=== PATIENT | female | born 1935 | race African-American/Black ===

== ENCOUNTER 2017-11-20 15:22 | Inpatient (IN) | payer MEDICARE, OTHER ==
[~2017-11-20] VITALS: Ht 134.6 cm; Wt 34.9 kg
[~2017-11-20 15:22] MED LIST: ACET325 PO; ALPH0.15 OP; AMLO5TAB96 PO; BENZ100 PO; CODEINE PO; FLON0.053; GUAIFENESIN PO; RANI150T PO; TRAV0.00; ZITH250T PO
[2017-11-20 15:24] VITALS: BP 160/78; PULSE 95; RESP 20; TEMP 99.1; O2SAT 93
--- NOTE | 2017-11-20 17:12 | RADRPT ---
EXAM DATE/TIME: 11/20/2017 16:40 [facility] COMPARISON: No previous studies available for comparison. INDICATIONS : Left hip pain, xray elsewhere showed non displaced subcapital fracture. RADIATION DOSE: 6.17 CTDIvol (mGy) MEDICAL HISTORY : Hypertension. Gastroesophageal reflux disease. Mute, Mental retardation. SURGICAL HISTORY : ENCOUNTER: Initial ACUITY: 1 day PAIN SCALE: 7/10 LOCATION: Left Hip TECHNIQUE: Volumetric scanning of the hip was performed. Using automated exposure control and adjustment of the mA and/or kV according to patient size, radiation dose was kept as low as reasonably achievable to o btain optimal diagnostic quality images. DICOM format image data is available electronically for rev iew and comparison. FINDINGS: Axial imaging with multiplanar reconstruction in the coronal and sagittal planes was performed. There is an impacted fracture of the subcapital region with sclerosis about the impacted trabecula. There is mild valgus angulation of the femoral neck. No displacement seen. The intertrochanteric region is intact. The cortex of the sub-articular femoral head is intact. The acetabulum is intact. No radiopaq ue foreign bodies.. CONCLUSION: Impacted subcapital fracture with valgus angulation. Walt Martin MD on November 20, 2017 at 17:06 Board Certified Radiologist. This report was verified electronically.
[2017-11-20] MEDS ORDERED: CENTCHW4 (17:56)
[2017-11-20] MEDS ORDERED: TIMO0.5S5 EACH EYE (17:56)
[2017-11-20] MEDS ORDERED: LATA0.002 EACH EYE (17:56)
[2017-11-20] MEDS ORDERED: TRAM50TA PO (17:56)
[2017-11-20] MEDS ORDERED: ZANT150T2 PO (17:56)
[2017-11-20] MEDS ORDERED: MAPA325T PO (17:56)
[2017-11-20] MEDS ORDERED: AMLO5 PO (17:56)
--- NOTE | 2017-11-20 17:58 | RADRPT ---
EXAM DATE/TIME: 11/20/2017 17:39 [facility] COMPARISON: No previous studies available for comparison. INDICATIONS : Chest pain. MEDICAL HISTORY : Unobtainable. SURGICAL HISTORY : Unobtainable. ENCOUNTER: Initial ACUITY: 1 day PAIN SCORE: Non-responsive. LOCATION: chest FINDINGS: There is a linear lucency along the lateral right hemithorax, likely skin fold. No significant focal pleural-parenchymal opacities. Cardiomediastinal contours are within normal limits. Degenerative louis ges are noted about the shoulders and in the thoracic spine. CONCLUSION: 1. Suspected skin fold along the lateral right hemithorax. Consider formal PA and lateral views of th e chest to exclude pneumothorax. Cameron Coronado MD on November 20, 2017 at 17:55 Board Certified Radiologist. This report was verified electronically.
[2017-11-20 18:28] LABS: AUTOMATED NEUTROPHIL # 9.7 TH/MM3 (1.8-7.7); BASOPHIL # 0.1 TH/MM3 (0-0.2); BASOPHIL % 0.6 % (0.0-2.0); EOSINOPHIL # 0.6 TH/MM3 (0-0.4); EOSINOPHIL % 4.4 % (0.0-4.0); HEMATOCRIT 37.4 % (35.0-46.0); HEMOGLOBIN 12.8 GM/DL (11.6-15.3); LYMPHOCYTE # 1.8 TH/MM3 (1.0-4.8); MEAN CELL VOLUME 88.3 FL (80.0-100.0); MEAN CORPUSCULAR HEMOGLOBIN 30.1 PG (27.0-34.0); MEAN CORPUSCULAR HGB CONC 34.1 % (32.0-36.0); MONO % 10.6 % (0.0-8.0); MONOCYTE # 1.4 TH/MM3 (0-0.9); NEUT % 71.4 % (16.0-70.0); PLATELET COUNT 188 TH/MM3 (150-450); RED BLOOD COUNT 4.23 MIL/MM3 (4.00-5.30); RED CELL DISTRIBUTION WIDTH 13.4 % (11.6-17.2); WHITE BLOOD COUNT 13.5 TH/MM3 (4.0-11.0)
--- NOTE | 2017-11-20 18:34 | PD ---
HPI Chief Complaint: Musculoskeletal Complaint Time Seen by Provider: 17:16 Travel History International Travel<30 days: No Contact w/Intl Traveler<30days: No Traveled to known affect area: No History of Present Illness HPI 81-year-old female that presents to the ED for evaluation of possible rapid to her left hip. Unclear as to how long this symptoms have been ongoing. Patient is mute and even with the women designer she seems to be not a good historian. From what I can get from the caregiver patient has been complaining of left hip pain and she's been limping on the left hip for a few days. Patient had an x- ray done outpatient that showed possible fracture in the told her to come here for a CAT scan more evaluation. Patient herself complains of pain everywhere. She does have a significant history of arthritis. Apparently patient follows with Dr. Church who gives patient pain medication with some relief. She complains of pain all over. Caregiver and patient herself denies any fall but again she is not a good historian. She does not appear to have any signs of trauma. Patient states that her pain is severe and she cannot give me a number because of her chronic mental status. Again history is limited because of patient's not being a good historian. PFSH Past Medical History Cardiovascular Problems: Yes Diminished Hearing: No GERD: Yes Genitourinary: Yes Hypertension: Yes Medical other: Yes (mute ) Tetanus Vaccination: > 5 Years Influenza Vaccination: No Past Surgical History Surgical History: No Previous Surgery Social History Alcohol Use: No Tobacco Use: No Substance Use: No Allergies-Medications (Allergen,Severity, Reaction): Coded Allergies: No Known Allergies (Verified Allergy, Unknown, 11/20/17) Reported Meds & Prescriptions Reported Meds & Active Scripts Active Reported Timoptic Opth Drops (Timolol Opth Drops) 0.5 % Soln 1 Drop EACH EYE BID Centrum (Multiple Vitamins W/ Minerals) 1 Chew 1 Tab DAILY Latanoprost Opth Drops (Latanoprost) 0.005% Drops 1 Drop EACH EYE HS Refrigerate until opened. Zantac (Ranitidine HCl) 150 Mg Tab 150 Mg PO BID Norvasc (Amlodipine Besylate) 5 Mg Tab 5 Mg PO DAILY Tramadol (Tramadol HCl) 50 Mg Tab 50 Mg PO BID PRN Mapap (Acetaminophen) 325 Mg Tab 650 Mg PO Q4-6H PRN Review of Systems ROS Limitations: Poor Historian Except as stated in HPI: all other systems reviewed are Neg Physical Exam Exam Limitations: Poor Historian Narrative GENERAL: SKIN: Warm and dry. HEAD: Atraumatic. Normocephalic. EYES: Pupils equal and round. No scleral icterus. No injection or drainage. ENT: No nasal bleeding or discharge. Mucous membranes pink and moist. Tongue is midline. No uvula deviation. NECK: Trachea midline. No JVD. CARDIOVASCULAR: Regular rate and rhythm. Full range of motion of the upper and lower rectum is bilaterally. RESPIRATORY: No accessory muscle use. Clear to auscultation. Breath sounds equal bilaterally. GASTROINTESTINAL: Abdomen soft, non-tender, nondistended. Hepatic and splenic margins not palpable. MUSCULOSKELETAL: Extremities without clubbing, cyanosis, or edema. No obvious deformities. Patient has limp to the left side. Pain with some movement of the left hip. No obvious bruising or deformity noted. 2+ pulses bilaterally. NEUROLOGICAL: Awake and alert. No obvious cranial nerve deficits. Motor grossly within normal limits. Five out of 5 muscle strength in the arms and legs. Normal speech. PSYCHIATRIC: Appropriate mood and affect; insight and judgment normal. Data Data Last Documented VS Vital Signs Date Time Temp Pulse Resp B/P (MAP) Pulse Ox O2 Delivery O2 Flow Rate FiO2 11/20/17 17:57 17 11/20/17 15:24 99.1 95 160/78 (105) 93 Room Air Orders Orders Ct Hip W/O Contrast (11/20/17 ) Electrocardiogram (11/20/17 17:25) Complete Blood Count With Diff (11/20/17 17:25) Comprehensive Metabolic Panel (11/20/17 17:25) Prothrombin Time / Inr (Pt) (11/20/17 17:25) Act Partial Throm Time (Ptt) (11/20/17 17:25) Urinalysis - C+S If Indicated (11/20/17 17:25) Magnesium (Mg) (11/20/17 17:25) Chest, Single Ap (11/20/17 17:25) Iv Access Insert/Monitor (11/20/17 17:25) Ct Brain W/O Iv Contrast(Rout) (11/20/17 ) Chest, Pa & Lat (11/20/17 ) Admit Order (Ed Use Only) (11/20/17 19:06) Admit To Inpatient (11/20/17 ) Vital Signs (Adult) Q4H (11/20/17 19:04) Activity Bed Rest (11/20/17 19:04) Intake + Output AGUEDA.QSHIFT (11/20/17 19:04) Diet Npo (11/21/17 Breakfast) Diet Regular Basic (11/20/17 Dinner) Sodium Chlor 0.9% 1000 Ml Inj (Ns 1000 M (11/20/17 19:04) Sodium Chloride 0.9% Flush (Ns Flush) (11/20/17 19:15) Sodium Chloride 0.9% Flush (Ns Flush) (11/20/17 21:00) Ondansetron Inj (Zofran Inj) (11/20/17 19:15) Comprehensive Metabolic Panel (11/21/17 06:00) Complete Blood Count With Diff (11/21/17 06:00) Case Management Consult (11/20/17 19:04) Acetaminophen (Tylenol) (11/20/17 19:15) Acetamin-Hydrocod 325-5 Mg ([place] 5-325 (11/20/17 19:15) Morphine Inj (Morphine Inj) (11/20/17 19:15) Docusate Sodium-Senna (Yady-Colace) (11/20/17 21:00) Magnesium Hydroxide Liq (Milk Of Magnesi (11/20/17 19:15) Sennosides (Senokot) (11/20/17 19:15) Bisacodyl Supp (Dulcolax Supp) (11/20/17 19:15) Lactulose Liq (Lactulose Liq) (11/20/17 19:15) Inpatient Certification (11/20/17 ) Labs Laboratory Tests Test 11/20/17 17:41 White Blood Count 13.5 TH/MM3 Red Blood Count 4.23 MIL/MM3 Hemoglobin 12.8 GM/DL Hematocrit 37.4 % Mean Corpuscular Volume 88.3 FL Mean Corpuscular Hemoglobin 30.1 PG Mean Corpuscular Hemoglobin Concent 34.1 % Red Cell Distribution Width 13.4 % Platelet Count 188 TH/MM3 Mean Platelet Volume 8.0 FL Neutrophils (%) (Auto) 71.4 % Lymphocytes (%) (Auto) 13.0 % Monocytes (%) (Auto) 10.6 % Eosinophils (%) (Auto) 4.4 % Basophils (%) (Auto) 0.6 % Neutrophils # (Auto) 9.7 TH/MM3 Lymphocytes # (Auto) 1.8 TH/MM3 Monocytes # (Auto) 1.4 TH/MM3 Eosinophils # (Auto) 0.6 TH/MM3 Basophils # (Auto) 0.1 TH/MM3 CBC Comment DIFF FINAL Differential Comment Prothrombin Time 10.3 SEC Prothromb Time International Ratio 1.0 RATIO Activated Partial Thromboplast Time 27.1 SEC Urine Color YELLOW Urine Turbidity CLEAR Urine pH 6.0 Urine Specific [place] 1.011 Urine Protein NEG mg/dL Urine Glucose (UA) NEG mg/dL Urine Ketones NEG mg/dL Urine Occult Blood MOD Urine Nitrite NEG Urine Bilirubin NEG Urine Urobilinogen 2.0 MG/DL Urine Leukocyte Esterase SMALL Urine RBC 6 /hpf Urine WBC 1 /hpf Microscopic Urinalysis Comment CULT NOT INDICATED Blood Urea Nitrogen 12 MG/DL Creatinine 0.54 MG/DL Random Glucose 75 MG/DL Total Protein 7.3 GM/DL Albumin 3.1 GM/DL Calcium Level 8.7 MG/DL Magnesium Level 2.2 MG/DL Alkaline Phosphatase 88 U/L Aspartate Amino Transf (AST/SGOT) 20 U/L Alanine Aminotransferase (ALT/SGPT) 27 U/L Total Bilirubin 0.4 MG/DL Sodium Level 134 MEQ/L Potassium Level 4.0 MEQ/L Chloride Level 98 MEQ/L Carbon Dioxide Level 30.6 MEQ/L Anion Gap 5 MEQ/L Estimat Glomerular Filtration Rate 130 ML/MIN [facility] Medical Decision Making Medical Screen Exam Complete: Yes Emergency Medical Condition: Yes Medical Record Reviewed: Yes Interpretation(s) Last Impressions Chest X-Ray 11/20/17 1725 Signed Impressions: Service Date/Time: Monday, November 20, 2017 17:39 - CONCLUSION: 1. Suspected skin fold along the lateral right hemithorax. Consider formal PA and lateral views of the chest to exclude pneumothorax. Cameron Coronado MD Lower Extremity CT 11/20/17 0000 Signed Impressions: Service Date/Time: Monday, November 20, 2017 16:40 - CONCLUSION: Impacted subcapital fracture with valgus angulation. Walt Martin MD CBC & BMP Diagram 11/20/17 17:41 Total Protein 7.3, Albumin 3.1 L, Calcium Level 8.7, Magnesium Level 2.2, Alkaline Phosphatase 88, Aspartate Amino Transf (AST/SGOT) 20, Alanine Aminotransferase (ALT/SGPT) 27, Total Bilirubin 0.4 coags WNL UA negative Differential Diagnosis Fracture versus sprain versus strain versus bruise versus contusion Narrative Course 82-year-old female that presents to the ED for evaluation of possible left hip fracture. Patient was properly examined and was found to have signs and symptoms concerning for fracture. CT was ordered at triage and show positive fracture of the left hip. No history of fall but again patient is not a good historian and unclear of the history. I have ordered a CT of the head as well to rule out any sign of acute head injury. Labs were ordered. Case was discussed with Dr. Black who agrees to admission to medicine and consult to him. Labs were essentially unremarkable. This time recommendation is for admission for further assessment of the hip fracture. Patient was admitted to the hospital for further evaluation of the hip fracture. Diagnosis Primary Impression: Hip fracture, left Qualified Codes: S72.002A - Fracture of unspecified part of neck of left femur , initial encounter for closed fracture Admitting Information Admitting Physician Requests: Admit Lorenzo Suarez Nov 20, 2017 18:34
[2017-11-20 18:38] LABS: PROTHROMBIN TIME - PATIENT 10.3 SEC (9.8-11.6)
[2017-11-20 18:43] LABS: ALBUMIN 3.1 GM/DL (3.4-5.0); ALKALINE PHOSPHATASE 88 U/L (45-117); ALT (GPT) 27 U/L (10-53); AST (GOT) 20 U/L (15-37); BICARBONATE 30.6 MEQ/L (21.0-32.0); BLOOD UREA NITROGEN 12 MG/DL (7-18); CALCIUM 8.7 MG/DL (8.5-10.1); CHLORIDE 98 MEQ/L (98-107); CREATININE 0.54 MG/DL (0.50-1.00); GLOMERULAR FILTRATION RATE 130 ML/MIN (>89); GLUCOSE,RANDOM 75 MG/DL (74-106); MAGNESIUM 2.2 MG/DL (1.5-2.5); SODIUM (NA) 134 MEQ/L (136-145); TOTAL BILIRUBIN ADULT 0.4 MG/DL (0.2-1.0); TOTAL PROTEIN 7.3 GM/DL (6.4-8.2)
[2017-11-20 18:47] LABS: BILIRUBIN, URINE NEG (NEG); BLOOD, URINE MOD (NEG); GLUCOSE,URINE NEG (NEG); KETONE, URINE NEG (NEG); NITRITE,URINE NEG (NEG); URINE COLOR YELLOW (YELLW/STRAW); URINE LEUKOCYTE ESTERASE SMALL (NEG)
[2017-11-20] MEDS ORDERED: SODIUM CHLOR 0.9% 1000 ML INJ 1,000 ML IV SCH (19:04)
--- NOTE | 2017-11-20 19:08 | HHI.HP ---
[facility] Freddie Church M.D. Admission Diagnosis acute left hip fracture Diagnoses: (1) Hip fracture, left Diagnosis: Principal (2) HTN (hypertension) Diagnosis: Principal (3) Leukocytosis Diagnosis: Principal (4) Agitation Diagnosis: Principal Travel History International Travel<30 Days: No Contact w/Intl Traveler <30 Da: No Traveled to Known Affected Are: No History of Present Illness This is an 81-year-old Mute female with a PMH of HTN, Glaucoma and GERD who was sent to the ER for evaluation of left hip pain. History obtained from caregiver and rack puncher as pt is mute, however appears pt is poor historian at baseline, does not understand all questions. Per report, pt w/ complaints of left hip pain x2 days, severe, associated w/ difficulty walking due to pain. Outpatient X-ray w/ possible left hip fracture, referred to ER for further evaluation. No history of fall or injury, however while in ER, pt w/ agitation and trying to get out of bed. On arrival, BP 160/78, HR 95, O2 sat 93% on RA, Temp 99.1. WBC 13.5. Chemistry essentially unremarkable. INR 1.0. Negative. CT Had suboptimal however no acute findings. CT LE with impacted subcapital fracture with valgus angulation. CXR with no acute findings. Dr. William consulted by ER physician, plan is for surgical intervention in am. Review of Systems Except as stated in HPI: all other systems reviewed are Neg ROS: Unable to obtain secondary to baseline mental status Past Family Social History Past Medical History PMH: HTN, Glaucoma and GERD Past Surgical History PAST SURGICAL HISTORY: None Allergies: Coded Allergies: No Known Allergies (Verified Allergy, Unknown, 11/20/17) Family History PAST FAMILY HISTORY: Reviewed. No h/o DM or CAD Social History PAST SOCIAL HISTORY: Negative for alcohol, tobacco or drugs. Physical Exam Vital Signs Vital Signs Date Time Temp Pulse Resp B/P (MAP) Pulse Ox O2 Delivery O2 Flow Rate FiO2 11/20/17 17:57 17 11/20/17 15:24 99.1 95 20 160/78 (105) 93 Room Air Physical Exam PE: GENERAL: Elderly female, agitated, grunting, trying to get out of bed, unable to redirect HEENT: PERRLA, EOMI. No scleral icterus or conjunctival pallor. No lid lag or facial droop. CARDIOVASCULAR: Regular rate and rhythm. No obvious murmurs to auscultation. No chest tenderness to palpation. RESPIRATORY: No obvious rhonchi or wheezing. Clear to auscultation. Breath sounds equal bilaterally. GASTROINTESTINAL: Abdomen soft, non-tender, nondistended. BS normal. MUSCULOSKELETAL: Extremities without clubbing, cyanosis, or edema. No obvious deformities. Decreased ROM of LLE due to injury. Pulses intact. NEUROLOGICAL: Awake, alert. Mute. No focal neurologic deficits. Moving both upper and lower extremities spontaneously. Laboratory Laboratory Tests Test 11/20/17 17:41 White Blood Count 13.5 Red Blood Count 4.23 Hemoglobin 12.8 Hematocrit 37.4 Mean Corpuscular Volume 88.3 Mean Corpuscular Hemoglobin 30.1 Mean Corpuscular Hemoglobin Concent 34.1 Red Cell Distribution Width 13.4 Platelet Count 188 Mean Platelet Volume 8.0 Neutrophils (%) (Auto) 71.4 Lymphocytes (%) (Auto) 13.0 Monocytes (%) (Auto) 10.6 Eosinophils (%) (Auto) 4.4 Basophils (%) (Auto) 0.6 Neutrophils # (Auto) 9.7 Lymphocytes # (Auto) 1.8 Monocytes # (Auto) 1.4 Eosinophils # (Auto) 0.6 Basophils # (Auto) 0.1 CBC Comment DIFF FINAL Differential Comment Prothrombin Time 10.3 Prothromb Time International Ratio 1.0 Activated Partial Thromboplast Time 27.1 Urine Color YELLOW Urine Turbidity CLEAR Urine pH 6.0 Urine Specific [place] 1.011 Urine Protein NEG Urine Glucose (UA) NEG Urine Ketones NEG Urine Occult Blood MOD Urine Nitrite NEG Urine Bilirubin NEG Urine Urobilinogen 2.0 Urine Leukocyte Esterase SMALL Urine RBC 6 Urine WBC 1 Microscopic Urinalysis Comment CULT NOT INDICATED Blood Urea Nitrogen 12 Creatinine 0.54 Random Glucose 75 Total Protein 7.3 Albumin 3.1 Calcium Level 8.7 Magnesium Level 2.2 Alkaline Phosphatase 88 Aspartate Amino Transf (AST/SGOT) 20 Alanine Aminotransferase (ALT/SGPT) 27 Total Bilirubin 0.4 Sodium Level 134 Potassium Level 4.0 Chloride Level 98 Carbon Dioxide Level 30.6 Anion Gap 5 Estimat Glomerular Filtration Rate 130 Result Diagram: 11/20/17174011/20/171740 Caprini VTE Risk Assessment Caprini VTE Risk Assessment: Mod/High Risk (score >= 2) Caprini Risk Assessment Model Point Value = 1 Point Value = 2 Point Value = 3 Point Value = 5 Age 41-60 Minor surgery BMI > 25 kg/m2 Swollen legs Varicose veins or History of unexplained or recurrent spontaneous Oral contraceptives or hormone replacement Sepsis (< 1 month) Serious lung disease, including pneumonia (< 1 month) Abnormal pulmonary function Acute myocardial infarction Congestive heart failure (< 1 month) History of inflammatory bowel disease Medical patient at bed rest Age 61-74 Arthroscopic surgery Major open surgery (> 45 min) Laparoscopic surgery (> 45 min) Malignancy Confined to bed (> 72 hours) Immobilizing plaster cast Central venous access Age >= 75 History of VTE Family history of VTE Factor V Leiden Prothrombin [id number] Lupus anticoagulant Anticardiolipin antibodies Elevated serum homocysteine Heparin-induced thrombocytopenia Other congenital or acquired thrombophilia Stroke (< 1 month) Elective arthroplasty Hip, pelvis, or leg fracture Acute spinal cord injury (< 1 month) Prophylaxis Regimen Total Risk Factor Score Risk Level Prophylaxis Regimen 0-1 Low Early ambulation 2 Moderate Order ONE of the following: *Sequential Compression Device (SCD) *Heparin 5000 units SQ BID 3-4 Higher Order ONE of the following medications: *Heparin 5000 units SQ TID *Enoxaparin/Lovenox 40 mg SQ daily (WT < 150 kg, CrCl > 30 mL/min) *Enoxaparin/Lovenox 30 mg SQ daily (WT < 150 kg, CrCl > 10-29 mL/min) *Enoxaparin/Lovenox 30 mg SQ BID (WT < 150 kg, CrCl > 30 mL/min) AND/OR *Sequential Compression Device (SCD) 5 or more Highest Order ONE of the following medications: *Heparin 5000 units SQ TID (Preferred with Epidurals) *Enoxaparin/Lovenox 40 mg SQ daily (WT < 150 kg, CrCl > 30 mL/min) *Enoxaparin/Lovenox 30 mg SQ daily (WT < 150 kg, CrCl > 10-29 mL/min) *Enoxaparin/Lovenox 30 mg SQ BID (WT < 150 kg, CrCl > 30 mL/min) AND *Sequential Compression Device (SCD) Assessment and Plan Problem List: (1) Hip fracture, left ICD Code: S72.002A - Fracture of unspecified part of neck of left femur, initial encounter for closed fracture Status: Acute (2) Leukocytosis ICD Code: D72.829 - Elevated white blood cell count, unspecified (3) HTN (hypertension) ICD Code: I10 - Essential (primary) hypertension (4) Agitation ICD Code: R45.1 - Restlessness and agitation Assessment and Plan A/P: 1. Left Hip Fx: unclear etiology, no obvious trauma/injury. CT Head w/ no acute findings, images reviewed by me. Outpatient CXR w/ possible left hip fracture, CT LE w/ impacted subcapital fracture with valgus angulation, images reviewed by me. Dr. William consulted, plan is for surgical intervention in am. NPO, IVF, pre-op labs and CXR reviewed. Analgesics/antiemetics as needed. 2. Leukocytosis: WBC 12. Likely secondary to injury, no clear infectious etiology. CXR w/ no acute findings, images reviewed by me. U/a negative for UTI. Repeat labs in am, monitor vitals. 3. HTN: Uncontrolled. BP 160-170's. Resume home Norvasc, monitor BP for need for additional antihypertensives. 4. Agitation: +agitation on exam, trying to get out of bed, Ativan prn, may need Sitter to avoid fall w/ further injury. Place on Fall Precautions. 5. DVT Prophylaxis: Anticoagulation post op 6. Social work for d/c planning as needed. 7. Previous records/labs reviewed, case discussed w/ day physician at length. Physician Certification 2 Midnight Certification Type: Admission for Inpatient Services Order for Inpatient Services The services are ordered in accordance with Medicare regulations or non- Medicare payer requirements, as applicable. In the case of services not specified as inpatient-only, they are appropriately provided as inpatient services in accordance with the 2-midnight benchmark. Estimated LOS (days): 2 days is the estimated time the patient will need to remain in the hospital, assuming treatment plan goals are met and no additional complications. Post-Hospital Plan: Not yet determined Problem Qualifiers (1) Hip fracture, left: Qualified Codes: S72.002A - Fracture of unspecified part of neck of left femur , initial encounter for closed fracture Annette Ireland MD Nov 20, 2017 19:08
[2017-11-20] MEDS ORDERED: LACTULOSE SYRUP 20 GM/30 ML CUP PO PRN (19:15)
[2017-11-20] MEDS ORDERED: SENNOSIDES 8.6 MG TAB PO PRN (19:15)
[2017-11-20] MEDS ORDERED: ONDANSETRON HCL 4 MG/2 ML VIAL IVP PRN (19:15)
[2017-11-20] MEDS ORDERED: SODIUM CHLORIDE 0.9% FLUSH 10 ML FLUSH IV FLUSH PRN (19:15)
[2017-11-20] MEDS ORDERED: MAGNESIUM HYDROXIDE SUSP 30 ML CUP PO PRN (19:15)
[2017-11-20] MEDS ORDERED: MORPHINE SULFATE 2 MG/ML INJ IV PUSH PRN (19:15)
[2017-11-20] MEDS ORDERED: ACETAMINOPHEN 325 MG TAB PO PRN (19:15)
[2017-11-20] MEDS ORDERED: ACETAMINOPHEN/HYDROcodone 325 MG/5 MG TAB PO PRN (19:15)
[2017-11-20] MEDS ORDERED: BISACODYL 10 MG SUPP RECTAL PRN (19:15)
--- NOTE | 2017-11-20 19:17 | RADRPT ---
EXAM DATE/TIME: 11/20/2017 19:00 [facility] COMPARISON: CHEST SINGLE AP, November 20, 2017, 17:39. INDICATIONS : Evaluate for pneumothoax. MEDICAL HISTORY : Hypertension. Gastroesophageal reflux disease. SURGICAL HISTORY : None. ENCOUNTER: Initial ACUITY: 1 day PAIN SCORE: 0/10 LOCATION: Bilateral chest FINDINGS: PA and lateral views of the chest demonstrate the lungs to be symmetrically aerated without evidence of mass, infiltrate or effusion. The cardiomediastinal contours are unremarkable. Osseous structure s are intact. There is no pneumothorax. CONCLUSION: No acute disease. There is no pneumothorax. David Gambino MD on November 20, 2017 at 19:12 Board Certified Radiologist. This report was verified electronically.
--- NOTE | 2017-11-20 19:25 | RADRPT ---
EXAM DATE/TIME: 11/20/2017 19:00 [facility] COMPARISON: No previous studies available for comparison. INDICATIONS : Head pain due to possible fall. RADIATION DOSE: 36.76 CTDIvol (mGy) MEDICAL HISTORY : Cardiovascular disease. Hypertension. Mentally disable. SURGICAL HISTORY : None. ENCOUNTER: Initial ACUITY: 1 day PAIN SCALE: Non-responsive LOCATION: Bilateral cranial TECHNIQUE: Multiple contiguous axial images were obtained of the head. Using automated exposure control and adj ustment of the mA and/or kV according to patient size, radiation dose was kept as low as reasonably a chievable to obtain optimal diagnostic quality images. DICOM format image data is available electro nically for review and comparison. FINDINGS: There is streak and motion artifact and sensitivity exam. CEREBRUM: The ventricles are normal for age with atrophic change. Chronic small vessel ischemic changes are pre sent. There is mild artifact over the right frontal lobe. No evidence of midline shift, mass lesion, hemorrhage or acute infarction. No extra-axial fluid collections are seen. POSTERIOR FOSSA: The cerebellum and brainstem are intact. The 4th ventricle is midline. The cerebellopontine angle i s unremarkable. EXTRACRANIAL: The visualized portion of the orbits is intact. SKULL: The calvaria is intact. No evidence of skull fracture. CONCLUSION: 1. Suboptimal exam secondary to motion and streak artifact. 2. Atrophy and chronic small vessel ischemic change. David Gambino MD on November 20, 2017 at 19:19 Board Certified Radiologist. This report was verified electronically.
[2017-11-20] MEDS ORDERED: LORazepam 2 MG/ML VIAL IV PUSH PRN (20:00)
[2017-11-20 20:35] VITALS: BP 158/87; PULSE 99; RESP 20; TEMP 98.6; O2SAT 96
[2017-11-20] MEDS ORDERED: SODIUM CHLORID 0.9% 500 ML IV PRN (21:00)
[2017-11-20] MEDS ORDERED: LACTATED RINGER'S 1000 ML IV PRN (21:00)
[2017-11-20] MEDS ORDERED: CHLORHEXIDINE GLUCONATE 2 % 1 PACK (2 CLOTHS) TOPICAL PRN (21:00)
[2017-11-20] MEDS ORDERED: DOCUSATE SODIUM 50 MG/SENNA 8.6 MG TAB PO SCH (21:00)
[2017-11-20] MEDS ORDERED: METOPROLOL TARTRATE 25 MG TAB PO PRN (21:00)
[2017-11-20] MEDS ORDERED: POVIDONE IODINE 5% (ANTISEPSIS KIT) 4 APPLICATIONS EACH NARE PRN (21:00)
[2017-11-20] MEDS: FAMOTIDINE 20 MG TAB PO SCH (22:07)
[2017-11-20] MEDS: SODIUM CHLORIDE 0.9% FLUSH 10 ML FLUSH IV FLUSH SCH (22:08)
[2017-11-21] VITALS: BP 170/73; PULSE 107; RESP 18; TEMP 98; O2SAT 95
[2017-11-21 07:10] LABS: AUTOMATED NEUTROPHIL # 9.3 TH/MM3 (1.8-7.7); BASOPHIL # 0.1 TH/MM3 (0-0.2); BASOPHIL % 0.9 % (0.0-2.0); EOSINOPHIL # 0.5 TH/MM3 (0-0.4); EOSINOPHIL % 3.7 % (0.0-4.0); HEMATOCRIT 39.5 % (35.0-46.0); LYMPH % 12.2 % (9.0-44.0); LYMPHOCYTE # 1.5 TH/MM3 (1.0-4.8); MEAN CORPUSCULAR HEMOGLOBIN 28.9 PG (27.0-34.0); MEAN CORPUSCULAR HGB CONC 32.8 % (32.0-36.0); MEAN PLATELET VOLUME 7.9 FL (7.0-11.0); MONO % 8.2 % (0.0-8.0); PLATELET COUNT 195 TH/MM3 (150-450); RED BLOOD COUNT 4.49 MIL/MM3 (4.00-5.30); RED CELL DISTRIBUTION WIDTH 13.3 % (11.6-17.2); WHITE BLOOD COUNT 12.4 TH/MM3 (4.0-11.0)
[2017-11-21 07:34] LABS: ALKALINE PHOSPHATASE 81 U/L (45-117); TOTAL BILIRUBIN ADULT 0.8 MG/DL (0.2-1.0); TOTAL PROTEIN 7.4 GM/DL (6.4-8.2)
[2017-11-21 07:37] LABS: ALBUMIN 3.1 GM/DL (3.4-5.0); ALT (GPT) 25 U/L (10-53); AST (GOT) 22 U/L (15-37); BICARBONATE 28.6 MEQ/L (21.0-32.0); BLOOD UREA NITROGEN 8 MG/DL (7-18); CALCIUM 9.1 MG/DL (8.5-10.1); CHLORIDE 104 MEQ/L (98-107); CREATININE 0.49 MG/DL (0.50-1.00); GLOMERULAR FILTRATION RATE 146 ML/MIN (>89); GLUCOSE,RANDOM 89 MG/DL (74-106); SODIUM (NA) 139 MEQ/L (136-145)
[2017-11-21 08:00] VITALS: BP 168/84; PULSE 103; RESP 18; TEMP 97.4; O2SAT 100
[2017-11-21] MEDS: LISINOPRIL 20 MG TAB PO SCH (09:00)
[2017-11-21] MEDS ORDERED: amLODIPine BESYLATE 5 MG TAB PO SCH (09:00)
[2017-11-21] MEDS ORDERED: MULTIVITAMINS/MINERALS THERAPEUTIC TAB PO SCH (09:00)
[2017-11-21] MEDS ORDERED: ONDANSETRON HCL 4 MG/2 ML VIAL IVP PRN (11:15)
[2017-11-21] MEDS ORDERED: Post-op Orders (for Pharmacy) XX ONE (11:15)
[2017-11-21] MEDS ORDERED: diphenhydrAMINE HCL 25 MG CAP PO PRN (11:15)
[2017-11-21] MEDS ORDERED: ACETAMINOPHEN/HYDROcodone 325 MG/7.5 MG TAB PO PRN ×2 (11:15)
[2017-11-21] MEDS ORDERED: MORPHINE SULFATE 4 MG/ML INJ IV PUSH PRN (11:15)
[2017-11-21] MEDS ORDERED: MISCELLANEOUS NURSING INFORMATION XX PRN (11:15)
[2017-11-21] MEDS ORDERED: MAGNESIUM HYDROXIDE SUSP 30 ML CUP PO PRN (11:15)
[2017-11-21] MEDS ORDERED: MISCELLANEOUS PHARMACY INFORMATION XX ONE (11:15)
[2017-11-21] MEDS ORDERED: ASPI81CH6 CHEW (11:17)
[2017-11-21] MEDS ORDERED: NORC5TAB PO (11:18)
[2017-11-21] MEDS ORDERED: GENTAMICIN SULFATE 80 MG/2 ML VIAL ONE (11:35)
[2017-11-21] MEDS ORDERED: ceFAZolin 2 GM PREMIX 50 ML ONE (11:35)
[2017-11-21] MEDS ORDERED: NEOSTIGMINE 5 MG/5 ML SYRINGE IV PUSH ONE (12:00)
[2017-11-21] MEDS ORDERED: DEXAMETHASONE SOD PHOS 4 MG/ML VIAL IV ONE (12:00)
[2017-11-21] MEDS ORDERED: ONDANSETRON HCL 4 MG/2 ML VIAL IV ONE (12:00)
[2017-11-21] MEDS ORDERED: ESMOLOL HCL 100 MG/10 ML VIAL IV ONE (12:00)
[2017-11-21] MEDS ORDERED: LACTATED RINGER'S 1000 ML INJ 1,000 ML IV ONE (12:00)
[2017-11-21] MEDS ORDERED: GLYCOPYRROLATE 1 MG/5 ML SYRINGE IV PUSH ONE (12:00)
[2017-11-21] MEDS ORDERED: LIDOCAINE HCL 1% PF 5 ML SYRINGE OTHER ONE (12:00)
[2017-11-21] MEDS ORDERED: ROCURONIUM INJ 50 MG/5 ML SYRINGE IV PUSH ONE (12:00)
[2017-11-21] MEDS ORDERED: PROPOFOL 200 MG/20 ML AMP IV ONE (12:00)
--- NOTE | 2017-11-21 12:49 | PD.ORT.PN ---
Subjective Post Op Day #: 0 Objective Vitals Vital Signs Date Time Temp Pulse Resp B/P (MAP) Pulse Ox O2 Delivery O2 Flow Rate FiO2 11/21/17 08:00 97.4 103 18 168/84 (112) 100 11/21/17 00:00 98.0 107 18 170/73 (105) 95 11/20/17 20:35 98.6 99 20 158/87 (110) 96 11/20/17 17:57 17 11/20/17 15:24 99.1 95 20 160/78 (105) 93 Room Air I/O 11/20/17 11/20/17 11/20/17 11/21/17 11/21/17 11/21/17 07:00 15:00 23:00 07:00 15:00 23:00 Intake Total 0 ml Balance 0 ml Intake Oral 0 ml # Voids 2 Result Diagram: 11/21/17 0617 11/21/17 0617 Other Results Laboratory Tests Test 11/20/17 17:41 Prothromb Time International Ratio 1.0 RATIO Prothrombin Time 10.3 SEC (9.8-11.6) Imaging Last 24 hours Impressions Chest X-Ray 11/20/17 1725 Signed Impressions: Service Date/Time: Monday, November 20, 2017 17:39 - CONCLUSION: 1. Suspected skin fold along the lateral right hemithorax. Consider formal PA and lateral views of the chest to exclude pneumothorax. Cameron Coronado MD Assessment & Plan Ortho Post Op Day #: 0 Problem List: Assessment and Plan s/p PCP L hip NWB ok to maintain dressing unless saturated asa 81mg mute, dementia d/c planning f/up dr. cox 2 weeks Carlos Blandon Nov 21, 2017 12:49
[2017-11-21] MEDS ORDERED: *ONDANSETRON 4 MG VIAL PERIprocedural Use ONLY ONE (13:08)
[2017-11-21] MEDS ORDERED: *PROMETHAZINE 25 MG/ML VIAL PERIprocedural use ONLY ONE (13:13)
[2017-11-21] MEDS ORDERED: ACETAMINOPHEN 325 MG TAB PO PRN (13:15)
[2017-11-21] MEDS ORDERED: DO NOT ADM ANY ANTICOAGULANT DRUGS PRN (13:15)
[2017-11-21] MEDS ORDERED: *MEPERIDINE 25 MG INJ VIAL PERIprocedural Use ONLY ONE (13:27)
--- NOTE | 2017-11-21 13:41 | RADRPT ---
EXAM DATE/TIME: 11/21/2017 12:33 [facility] COMPARISON: CT HIP LEFT W/O CONTRAST, November 20, 2017, 16:40. INDICATIONS : ORIF lt hip pinning. MEDICAL HISTORY : None. SURGICAL HISTORY : None. ENCOUNTER: Initial ACUITY: 1 day PAIN SCORE: Non-responsive. LOCATION: Left Hip FINDINGS: 2 images from the OR have been submitted. 3 screws are seen to traverse the left femoral neck and hea d region. The hardware appears well placed through the subcapital femoral neck fracture. CONCLUSION: Status post ORIF of a subcapital femoral neck fracture on the left. Freddie Ray MD on November 21, 2017 at 13:37 Board Certified Radiologist. This report was verified electronically.
[2017-11-21] MEDS: DEXT 5%-NACL 0.45% 1000 ML INJ 1,000 ML IV SCH (14:00)
--- NOTE | 2017-11-21 14:17 | MB ---
cc: OSVALDO ENCINAS M.D. DATE OF CONSULTATION: 11/21/2017. REASON FOR CONSULTATION: Left hip fracture. HISTORY OF PRESENT ILLNESS: The patient is an elderly 81-year-old female who is reported to be mute with past history of hypertension, glaucoma, reflux who presented to the emergency room with a chief complaint of severe left hip pain. There is limited history from the patient and also from the caregiver who is also an american sign language interpreter and mute, but it is unclear if the patient had fallen. I have also spoken with the daughter who is power of civil attorney and she states the mother has had the acute onset of severe left hip pain for about the last two days duration with inability to stand and ambulate. X-rays have been performed and a CT scan was reviewed and there is evidence of a left subcapital femoral neck fracture. She has been admitted to the medical service. Orthopedic surgery has been consulted for further evaluation and management. PAST MEDICAL HISTORY: 1. Hypertension. 2. Glaucoma. 3. Reflux. 4. She is mute. PAST SURGICAL HISTORY: None. ALLERGIES: NO KNOWN DRUG ALLERGIES. FAMILY HISTORY: Reviewed. No history of diabetes or heart disease. SOCIAL HISTORY: No tobacco, alcohol or drug use. REVIEW OF SYSTEMS: A review of systems is limited due to her current condition but otherwise negative other than the history of present illness. PHYSICAL EXAMINATION: VITAL SIGNS: Temperature is 99.1, pulse is 95, respirations 20, blood pressure 160/80. GENERAL: The patient is awake. An elderly-appearing female lying in bed mildly agitated. HEAD, EYES, EARS, NOSE, THROAT: Normocephalic and atraumatic. No scleral icterus. NECK: The neck is supple. LUNGS: Clear. HEART: Regular rate and rhythm. ABDOMEN: Abdomen soft and nontender. EXTREMITIES: She has pain with any passive motion of the left hip. The patient does not follow commands and does not speak. LABORATORY STUDIES: White blood cell count is 13.5, hemoglobin is 12, hematocrit is 37, platelet count 188,000. Glucose 75. IMAGING STUDIES: CT scan of the left hip shows a valgus impacted femoral neck fracture. IMPRESSION 81-year-old female who is mute and has a valgus impacted left femoral neck fracture, probable recent fall. PLAN: I discussed the diagnosis with the patient's daughter who is power of civil attorney. I spoke about treatment options including the option of nonoperative treatment versus surgery. The surgical options I have discussed including percutaneous screw fixation versus bipolar hemiarthroplasty replacement. The risks, benefits, and indications were discussed. At this point, it is my recommendation as well as the patient's daughter's wishes who is power of civil attorney to proceed with surgical intervention to include percutaneous screw fixation. The risks of surgery were discussed which include but are not limited to anesthesia, bleeding, infection, damage to nerve or blood vessels, failure of hardware, blood clots, pulmonary embolism and even . Written consent has been obtained. The surgical site has been marked. We will proceed accordingly. MD CUBA Yoon/REVA /11:20 AM /1:54 PM
[2017-11-21 15:05] VITALS: BP 156/65; PULSE 112; RESP 17; TEMP 97.1; O2SAT 95
[2017-11-21] MEDS: FAMOTIDINE 20 MG TAB PO SCH ×2 (16:44→20:52)
[2017-11-21] MEDS: amLODIPine BESYLATE 5 MG TAB PO SCH (16:45)
[2017-11-21] MEDS: SODIUM CHLORIDE 0.9% FLUSH 10 ML FLUSH IV FLUSH SCH ×2 (16:45→20:52)
--- NOTE | 2017-11-21 18:02 | HHI.PR ---
Subjective Remarks per RN patient has been agitated after came back from [place] and was administered ativan Patient is sleeping and difficult to arouse Objective Vitals Vital Signs Date Time Temp Pulse Resp B/P (MAP) Pulse Ox O2 Delivery O2 Flow Rate FiO2 11/21/17 15:05 97.1 112 17 156/65 (95) 95 11/21/17 14:05 96 14 145/70 (95) 100 Nasal Cannula 2 11/21/17 13:45 92 14 138/63 (88) 100 Nasal Cannula 2 11/21/17 13:30 108 14 155/80 (105) 100 Nasal Cannula 2 11/21/17 13:15 122 14 160/88 (112) 100 Nasal Cannula 2 11/21/17 12:56 98.1 87 14 188/87 (120) 100 Nasal Cannula 2 11/21/17 08:00 97.4 103 18 168/84 (112) 100 11/21/17 00:00 98.0 107 18 170/73 (105) 95 11/20/17 20:35 98.6 99 20 158/87 (110) 96 I/O 11/20/17 11/20/17 11/20/17 11/21/17 11/21/17 11/21/17 07:00 15:00 23:00 07:00 15:00 23:00 Intake Total 0 ml 800 ml Output Total 350 ml Balance 0 ml 450 ml Intake Oral 0 ml IV Total 800 ml Output Urine Total 300 ml Estimated Blood Loss 50 ml # Voids 2 3 # Bowel Movements 0 Result Diagram: 11/21/17 0617 11/21/17 0617 Imaging Last Impressions Hip X-Ray 11/21/17 0000 Signed Impressions: Service Date/Time: Tuesday, November 21, 2017 12:33 - CONCLUSION: Status post ORIF of a subcapital femoral neck fracture on the left. Freddie Ray MD Chest X-Ray 11/20/17 1725 Signed Impressions: Service Date/Time: Monday, November 20, 2017 17:39 - CONCLUSION: 1. Suspected skin fold along the lateral right hemithorax. Consider formal PA and lateral views of the chest to exclude pneumothorax. Cameron Coronado MD Lower Extremity CT 11/20/17 0000 Signed Impressions: Service Date/Time: Monday, November 20, 2017 16:40 - CONCLUSION: Impacted subcapital fracture with valgus angulation. Walt Martin MD Head CT 11/20/17 0000 Signed Impressions: Service Date/Time: Monday, November 20, 2017 19:00 - CONCLUSION: 1. Suboptimal exam secondary to motion and streak artifact. 2. Atrophy and chronic small vessel ischemic change. David Gambino MD Objective Remarks GENERAL: Elderly female, agitated, grunting, trying to get out of bed, unable to redirect HEENT: PERRLA, EOMI. No scleral icterus or conjunctival pallor. No lid lag or facial droop. CARDIOVASCULAR: Regular rate and rhythm. No obvious murmurs to auscultation. No chest tenderness to palpation. RESPIRATORY: No obvious rhonchi or wheezing. Clear to auscultation. Breath sounds equal bilaterally. GASTROINTESTINAL: Abdomen soft, non-tender, nondistended. BS normal. MUSCULOSKELETAL: Extremities without clubbing, cyanosis, or edema. No obvious deformities. Decreased ROM of LLE due to injury. Pulses intact. NEUROLOGICAL: Awake, alert. Mute. No focal neurologic deficits. Moving both upper and lower extremities spontaneously. Medications and IVs Current Medications Medications (Trade) Dose Ordered Sig/Juanjose Route Start Time Stop Time Status Last Admin (NS Flush) 2 ml UNSCH PRN IV FLUSH 11/20/17 19:15 (NS Flush) 2 ml BID IV FLUSH 11/20/17 21:00 11/21/17 16:45 (Senokot) 17.2 mg Q12H PRN PO 11/20/17 19:15 (Dulcolax Supp) 10 mg DAILY PRN RECTAL 11/20/17 19:15 (Lactulose Liq) 30 ml DAILY PRN PO 11/20/17 19:15 (Xalatan 0.005% Opth Soln) 1 drop HS EACH EYE 11/20/17 21:00 (Timoptic 0.5% Opth Soln) 1 drop BID EACH EYE 11/20/17 21:00 (Pepcid) 20 mg BID PO 11/20/17 21:00 11/21/17 16:44 (Ativan Inj) 1 mg Q2H PRN IV PUSH 11/20/17 20:00 11/21/17 16:37 (Lopressor) 25 mg COLD STORAGE WORKER PRN PO 11/20/17 21:00 11/23/17 20:59 (Betadine 5% Antisepsis Kit) 1 applic COLD STORAGE WORKER PRN EACH NARE 11/20/17 21:00 11/23/17 20:59 (Chlorhexidine 2% Cloth) 3 pack COLD STORAGE WORKER PRN TOPICAL 11/20/17 21:00 11/23/17 20:59 (Norvasc) 10 mg DAILY PO 11/21/17 09:00 11/21/17 16:45 (Prinivil) 20 mg DAILY PO 11/21/17 09:00 11/21/17 09:00 Dextrose/Sodium Chloride 1,000 ml @ 100 mls/hr Q10H IV 11/21/17 11:15 11/22/17 00:16 (Lovenox Inj) 30 mg Q24H SQ 11/22/17 12:00 (Yady-Colace) 1 tab BID PO 11/21/17 21:00 (Milk Of Magnesia Liq) 10 ml Q12H PRN PO 11/21/17 11:15 Cefazolin Sodium 1000 mg/Sodium Chloride 100 ml @ 200 mls/hr Q8H IV 11/21/17 18:00 11/22/17 02:18 Miscellaneous Information UNSCH PRN XX 11/21/17 11:15 ([place] 7.5-325 Mg) 1 tab Q4H PRN PO 11/21/17 11:15 11/21/17 16:04 ([place] 7.5-325 Mg) 2 tab Q6H PRN PO 11/21/17 11:15 (Zofran Inj) 4 mg Q4H PRN IVP 11/21/17 11:15 (Theragran M Tab) 1 tab DAILY PO 11/22/17 09:00 (Benadryl) 25 mg Q6H PRN PO 11/21/17 11:15 Miscellaneous Information ALL NURSING DEPARTME... UNSCH PRN .XX 11/21/17 13:15 11/22/17 13:14 (Tylenol) 650 mg Q6H PRN PO 11/21/17 13:15 (Morphine Inj) 2 mg Q3H PRN IV 11/21/17 18:45 A/P Problem List: (1) Hip fracture, left ICD Code: S72.002A - Fracture of unspecified part of neck of left femur, initial encounter for closed fracture Status: Acute (2) Leukocytosis ICD Code: D72.829 - Elevated white blood cell count, unspecified (3) HTN (hypertension) ICD Code: I10 - Essential (primary) hypertension (4) Agitation ICD Code: R45.1 - Restlessness and agitation Assessment and Plan 1. Left Hip Fx: unclear etiology, no obvious trauma/injury. CT Head w/ no acute findings, images reviewed by me. Outpatient CXR w/ possible left hip fracture, CT LE w/ impacted subcapital fracture with valgus angulation, images reviewed by me. Dr. William consulted, plan is for surgical intervention in am. NPO, IVF, pre-op labs and CXR reviewed. Analgesics/antiemetics as needed. 11/21 SP Percutaneous screw fixation left femoral neck fracture. Management as per orthopedic surgery. Pain control with po norco. 2. Leukocytosis: WBC 12. Likely secondary to injury, no clear infectious etiology. CXR w/ no acute findings, images reviewed by me. U/a negative for UTI. Repeat labs in am, monitor vitals. 3. HTN: Uncontrolled. BP 160-170's. Resume home Norvasc, monitor BP for need for additional antihypertensives. 4. Agitation: +agitation on exam, trying to get out of bed, Ativan prn, may need Sitter to avoid fall w/ further injury. Place on Fall Precautions. 5. DVT Prophylaxis: Anticoagulation post op 6. Social work for d/c planning as needed. 7. Previous records/labs reviewed, case discussed w/ day physician at length. Problem Qualifiers (1) Hip fracture, left: Qualified Codes: S72.002A - Fracture of unspecified part of neck of left femur , initial encounter for closed fracture Dennis Watt MD Nov 21, 2017 18:02
[2017-11-21] MEDS ORDERED: MORPHINE SULFATE 2 MG/ML INJ IV PRN (18:45)
[2017-11-21 20:00] VITALS: BP 128/63; PULSE 94; RESP 16; TEMP 97.9; O2SAT 92
--- NOTE | 2017-11-21 20:42 | MP ---
cc: OSVALDO SUAREZ M.D. DATE OF SURGERY: 11/21/2017. PREOPERATIVE DIAGNOSIS: Left femoral neck fracture. POSTOPERATIVE DIAGNOSES: Left femoral neck fracture. OPERATIVE PROCEDURE PERFORMED: Percutaneous screw fixation left femoral neck fracture. SURGEON: Dr. Osvaldo Suarez. RESIDENTIAL CARE FACILITY MANAGER: Corry Crow ANESTHESIA: General. ESTIMATED BLOOD LOSS: 50 cc. COMPLICATIONS: None. IMPLANTS USED: Synthes. JUSTIFICATION FOR THE PROCEDURE: This patient is an 82-year-old female who appears to have fallen sustaining a left valgus impacted femoral neck fracture. She was taken to the [facility] Emergency Room. X-rays confirmed the above-named findings. The patient as well as the patient's daughter who is the power of immigration attorney were counselled as the risks, benefits, and alternatives to the above-named proposed surgical procedure and they did wish to proceed with surgery. DESCRIPTION OF THE PROCEDURE IN DETAIL: Appropriate written was obtained. The patient was identified and taken to the operating room and placed supine on the operating room table. General anesthesia was administered as well as 2 grams of IV Ancef. The left foot was placed in a padded traction boot. The right leg was placed in a padded well-leg anaya. All bony prominences and pressure points were well padded. The left hip and left lower extremity were prepped and draped using isopropyl alcohol, Hibiclens solution, Chloraprep and DuraPrep solution. After a time out was performed, a longitudinal incision was made over the lateral aspect of the right hip. The fascial layer was incised. At this point, three guidewires were then drilled from the lateral cortex to the femur transversing the fracture and this was visualized in multiple lanes using fluoroscopic imaging. Subsequently three separate Synthes 7.3 mm partially threaded stainless steel screws were inserted over the guidewires for fixation of the femoral neck fracture. The guidewires were removed. Fluoroscopic imaging again confirmed hardware placement and fracture reduction. The surgical wound was thoroughly irrigated with sterile saline solution. The fascial layer and subcutaneous layer were closed with 2-0 Vicryl suture. The skin was closed with Dermabond. Sterile dressings were applied. The patient tolerated the procedure well. No intraoperative complications were noted. MD CUBA Yono/REVA /12:26 PM /8:20 PM
[2017-11-21] MEDS: DOCUSATE SODIUM 50 MG/SENNA 8.6 MG TAB PO SCH (20:52)
[2017-11-21] MEDS: LATANOPROST 0.005% OPHT SOLN 2.5 ML BTL EACH EYE SCH (21:00)
[2017-11-22] VITALS (7 sets, daily range): BP systolic 134–162; BP diastolic 67–83; PULSE 92–114; RESP 16–19; TEMP 97–99; O2SAT 93–97
[2017-11-22] MEDS: DEXT 5%-NACL 0.45% 1000 ML INJ 1,000 ML IV SCH ×3 (00:16→17:15)
--- NOTE | 2017-11-22 07:14 | PD.ORT.PN ---
Subjective Subjective Remarks Patient appears to be resting comfortably. Objective Vitals Vital Signs Date Time Temp Pulse Resp B/P (MAP) Pulse Ox O2 Delivery O2 Flow Rate FiO2 11/22/17 00:00 97.0 92 18 134/83 (100) 95 11/21/17 21:43 Room Air 11/21/17 20:00 97.9 94 16 128/63 (84) 92 11/21/17 15:05 97.1 112 17 156/65 (95) 95 11/21/17 14:05 96 14 145/70 (95) 100 Nasal Cannula 2 11/21/17 13:45 92 14 138/63 (88) 100 Nasal Cannula 2 11/21/17 13:30 108 14 155/80 (105) 100 Nasal Cannula 2 11/21/17 13:15 122 14 160/88 (112) 100 Nasal Cannula 2 11/21/17 12:56 98.1 87 14 188/87 (120) 100 Nasal Cannula 2 11/21/17 08:00 97.4 103 18 168/84 (112) 100 I/O 11/21/17 11/21/17 11/21/17 11/22/17 11/22/17 11/22/17 07:00 15:00 23:00 07:00 15:00 23:00 Intake Total 0 ml 800 ml 1220 ml Output Total 350 ml 650 ml Balance 0 ml 450 ml 570 ml Intake Oral 0 ml 120 ml IV Total 800 ml 1100 ml Output Urine Total 300 ml 650 ml Estimated Blood Loss 50 ml Bladder Scan Volume Amount 325 ml # Voids 2 3 # Bowel Movements 0 Result Diagram: 11/21/17 0617 11/21/17 0617 Imaging Last 24 hours Impressions Chest X-Ray 11/20/17 1725 Signed Impressions: Service Date/Time: Monday, November 20, 2017 17:39 - CONCLUSION: 1. Suspected skin fold along the lateral right hemithorax. Consider formal PA and lateral views of the chest to exclude pneumothorax. Cameron Coronado MD Objective Remarks Awake, alert, no acute distress. Patient is deaf and mute. Dressing in place without drainage. Left lower extremity: Appears neurovascular intact distally. Pulses palpable. Assessment & Plan Assessment and Plan POD#1 s/p PCP L hip 50% WB LLE ok to maintain dressing unless saturated asa 81mg mute, dementia d/c planning f/up dr. cox 2 weeks Linda Waller MD Nov 22, 2017 07:14
[2017-11-22] MEDS: TIMOLOL MALEATE 0.5% OPHT SOLN 5 ML BTL EACH EYE SCH ×2 (09:00→20:09)
--- NOTE | 2017-11-22 10:32 | HHI.PR ---
Subjective Remarks daughter at bedside as per RN report - patient slept since yesterday after was given Ativan until today. As per daughter patient was in pain earlier. Afebrile. Objective Vitals Vital Signs Date Time Temp Pulse Resp B/P (MAP) Pulse Ox O2 Delivery O2 Flow Rate FiO2 11/22/17 08:43 93 11/22/17 08:00 98.5 16 158/73 (101) 96 11/22/17 00:00 97.0 92 18 134/83 (100) 95 11/21/17 21:43 Room Air 11/21/17 20:00 97.9 94 16 128/63 (84) 92 11/21/17 15:05 97.1 112 17 156/65 (95) 95 11/21/17 14:05 96 14 145/70 (95) 100 Nasal Cannula 2 11/21/17 13:45 92 14 138/63 (88) 100 Nasal Cannula 2 11/21/17 13:30 108 14 155/80 (105) 100 Nasal Cannula 2 11/21/17 13:15 122 14 160/88 (112) 100 Nasal Cannula 2 11/21/17 12:56 98.1 87 14 188/87 (120) 100 Nasal Cannula 2 I/O 11/21/17 11/21/17 11/21/17 11/22/17 11/22/17 11/22/17 07:00 15:00 23:00 07:00 15:00 23:00 Intake Total 0 ml 800 ml 1220 ml Output Total 350 ml 650 ml Balance 0 ml 450 ml 570 ml Intake Oral 0 ml 120 ml IV Total 800 ml 1100 ml Output Urine Total 300 ml 650 ml Estimated Blood Loss 50 ml Bladder Scan Volume Amount 325 ml # Voids 2 3 # Bowel Movements 0 Result Diagram: 11/21/17 0617 11/21/17 0617 Imaging Last Impressions Hip X-Ray 11/21/17 0000 Signed Impressions: Service Date/Time: Tuesday, November 21, 2017 12:33 - CONCLUSION: Status post ORIF of a subcapital femoral neck fracture on the left. Freddie Ray MD Chest X-Ray 11/20/17 8445 Signed Impressions: Service Date/Time: Monday, November 20, 2017 17:39 - CONCLUSION: 1. Suspected skin fold along the lateral right hemithorax. Consider formal PA and lateral views of the chest to exclude pneumothorax. Cameron Coronado MD Lower Extremity CT 11/20/17 0000 Signed Impressions: Service Date/Time: Monday, November 20, 2017 16:40 - CONCLUSION: Impacted subcapital fracture with valgus angulation. Walt Martin MD Head CT 11/20/17 0000 Signed Impressions: Service Date/Time: Monday, November 20, 2017 19:00 - CONCLUSION: 1. Suboptimal exam secondary to motion and streak artifact. 2. Atrophy and chronic small vessel ischemic change. David Gambino MD Objective Remarks GENERAL: Elderly female, agitated, grunting, trying to get out of bed, unable to redirect HEENT: PERRLA, EOMI. No scleral icterus or conjunctival pallor. No lid lag or facial droop. CARDIOVASCULAR: Regular rate and rhythm. No obvious murmurs to auscultation. No chest tenderness to palpation. RESPIRATORY: No obvious rhonchi or wheezing. Clear to auscultation. Breath sounds equal bilaterally. GASTROINTESTINAL: Abdomen soft, non-tender, nondistended. BS normal. MUSCULOSKELETAL: Extremities without clubbing, cyanosis, or edema. No obvious deformities. Decreased ROM of LLE due to injury. Pulses intact. NEUROLOGICAL: Awake, alert. Mute. No focal neurologic deficits. Moving both upper and lower extremities spontaneously. Medications and IVs Current Medications Medications (Trade) Dose Ordered Sig/Juanjose Route Start Time Stop Time Status Last Admin (NS Flush) 2 ml UNSCH PRN IV FLUSH 11/20/17 19:15 (NS Flush) 2 ml BID IV FLUSH 11/20/17 21:00 11/21/17 16:45 (Senokot) 17.2 mg Q12H PRN PO 11/20/17 19:15 (Dulcolax Supp) 10 mg DAILY PRN RECTAL 11/20/17 19:15 (Lactulose Liq) 30 ml DAILY PRN PO 11/20/17 19:15 (Xalatan 0.005% Opth Soln) 1 drop HS EACH EYE 11/20/17 21:00 (Timoptic 0.5% Opth Soln) 1 drop BID EACH EYE 11/20/17 21:00 (Pepcid) 20 mg BID PO 11/20/17 21:00 11/21/17 16:44 (Ativan Inj) 1 mg Q2H PRN IV PUSH 11/20/17 20:00 11/21/17 16:37 (Lopressor) 25 mg INTERNAL GRINDER PRN PO 11/20/17 21:00 11/23/17 20:59 (Betadine 5% Antisepsis Kit) 1 applic INTERNAL GRINDER PRN EACH NARE 11/20/17 21:00 11/23/17 20:59 (Chlorhexidine 2% Cloth) 3 pack INTERNAL GRINDER PRN TOPICAL 11/20/17 21:00 11/23/17 20:59 (Norvasc) 10 mg DAILY PO 11/21/17 09:00 11/21/17 16:45 (Prinivil) 20 mg DAILY PO 11/21/17 09:00 11/21/17 09:00 Dextrose/Sodium Chloride 1,000 ml @ 100 mls/hr Q10H IV 11/21/17 11:15 11/22/17 00:16 (Lovenox Inj) 30 mg Q24H SQ 11/22/17 12:00 (Yady-Colace) 1 tab BID PO 11/21/17 21:00 (Milk Of Magnjose Liq) 10 ml Q12H PRN PO 11/21/17 11:15 Cefazolin Sodium 1000 mg/Sodium Chloride 100 ml @ 200 mls/hr Q8H IV 11/21/17 18:00 11/22/17 02:18 Miscellaneous Information UNSCH PRN XX 11/21/17 11:15 ([place] 7.5-325 Mg) 1 tab Q4H PRN PO 11/21/17 11:15 11/21/17 16:04 ([place] 7.5-325 Mg) 2 tab Q6H PRN PO 11/21/17 11:15 (Zofran Inj) 4 mg Q4H PRN IVP 11/21/17 11:15 (Theragran M Tab) 1 tab DAILY PO 11/22/17 09:00 (Benadryl) 25 mg Q6H PRN PO 11/21/17 11:15 Miscellaneous Information ALL NURSING DEPARTME... UNSCH PRN .XX 11/21/17 13:15 11/22/17 13:14 (Tylenol) 650 mg Q6H PRN PO 11/21/17 13:15 (Morphine Inj) 2 mg Q3H PRN IV 11/21/17 18:45 A/P Problem List: (1) Hip fracture, left ICD Code: S72.002A - Fracture of unspecified part of neck of left femur, initial encounter for closed fracture Status: Acute (2) Leukocytosis ICD Code: D72.829 - Elevated white blood cell count, unspecified (3) HTN (hypertension) ICD Code: I10 - Essential (primary) hypertension (4) Agitation ICD Code: R45.1 - Restlessness and agitation Assessment and Plan 1. Left Hip Fx: unclear etiology, no obvious trauma/injury. CT Head w/ no acute findings, images reviewed by me. Outpatient CXR w/ possible left hip fracture, CT LE w/ impacted subcapital fracture with valgus angulation, images reviewed by me. Dr. William consulted, plan is for surgical intervention in am. NPO, IVF, pre-op labs and CXR reviewed. Analgesics/antiemetics as needed. 11/22 POD #1 SP Percutaneous screw fixation left femoral neck fracture. Management as per orthopedic surgery. Pain control with po norco. 2. Leukocytosis: WBC 12. Likely secondary to injury, no clear infectious etiology. CXR w/ no acute findings, images reviewed by me. U/a negative for UTI. Repeat labs in am, monitor vitals. 11/22 Suspect 2/2 stress and pain. Labs pending today. 3. HTN: Uncontrolled. BP 160-170's. Resume home Norvasc, monitor BP for need for additional antihypertensives. 11/22 BP better controlled. Continue Amlodipine, started lisinopril on 11/21 for uncontrolled BP. 4. Agitation: +agitation on exam, trying to get out of bed, Ativan prn, may need Sitter to avoid fall w/ further injury. Place on Fall Precautions. 11/22 DC Ativan. Will start on Seroquel 25 mg po bid and Haldol as needed. 5. DVT Prophylaxis: Anticoagulation post op 6. Social work for d/c planning as needed. Problem Qualifiers (1) Hip fracture, left: Qualified Codes: S72.002A - Fracture of unspecified part of neck of left femur , initial encounter for closed fracture Dennis Watt MD Nov 22, 2017 10:32
--- NOTE | 2017-11-22 10:37 | HHI.DCPOC ---
Discharge Care Plan Diagnosis: (1) Hip fracture, left (2) Leukocytosis (3) Agitation (4) HTN (hypertension) (5) Closed fracture of midcervical section of femur Goals to Promote Your Health * To prevent worsening of your condition and complications * To maintain your health at the optimal level Directions to Meet Your Goals Take your medications as prescribed Follow your dietary instruction Follow activity as directed Keep your appointments as scheduled Take your immunizations and boosters as scheduled If your symptoms worsen call your PCP, if no PCP go to Urgent Care Center or Emergency Room Smoking is Dangerous to Your Health. Avoid second hand smoke Call the 24-hour hour crisis hotline for domestic abuse at Dennis Watt MD Nov 22, 2017 10:37
[2017-11-22] MEDS ORDERED: AMLO5 PO (10:43)
[2017-11-22] MEDS ORDERED: LISI-515 PO (10:43)
[2017-11-22] MEDS ORDERED: HALOPERIDOL LACTATE 5 MG/ML AMP IM PRN (10:45)
--- NOTE | 2017-11-22 11:01 | HHI.DS ---
Discharge Summary Admission Date Nov 20, 2017 at 19:08 Discharge Date: Nov 23, 2017 Admitting Diagnosis acute left hip fracture (1) Hip fracture, left ICD Code: S72.002A - Fracture of unspecified part of neck of left femur, initial encounter for closed fracture Diagnosis: Principal Status: Acute (2) Leukocytosis ICD Code: D72.829 - Elevated white blood cell count, unspecified Diagnosis: Principal (3) HTN (hypertension) ICD Code: I10 - Essential (primary) hypertension Diagnosis: Principal (4) Agitation ICD Code: R45.1 - Restlessness and agitation Diagnosis: Principal Procedures Percutaneous screw fixation left femoral neck fracture. Brief History - From Admission This is an 81-year-old Mute female with a PMH of HTN, Glaucoma and GERD who was sent to the ER for evaluation of left hip pain. History obtained from caregiver and sap pi architect as pt is mute, however appears pt is poor historian at baseline, does not understand all questions. Per report, pt w/ complaints of left hip pain x2 days, severe, associated w/ difficulty walking due to pain. Outpatient X-ray w/ possible left hip fracture, referred to ER for further evaluation. No history of fall or injury, however while in ER, pt w/ agitation and trying to get out of bed. On arrival, BP 160/78, HR 95, O2 sat 93% on RA, Temp 99.1. WBC 13.5. Chemistry essentially unremarkable. INR 1.0. Negative. CT Had suboptimal however no acute findings. CT LE with impacted subcapital fracture with valgus angulation. CXR with no acute findings. Dr. William consulted by ER physician, plan is for surgical intervention in am. CBC/BMP: 11/21/17 0617 11/21/17 0617 Significant Findings Laboratory Tests Test 11/20/17 17:41 11/21/17 06:17 White Blood Count 13.5 TH/MM3 (4.0-11.0) 12.4 TH/MM3 (4.0-11.0) Neutrophils (%) (Auto) 71.4 % (16.0-70.0) 75.0 % (16.0-70.0) Monocytes (%) (Auto) 10.6 % (0.0-8.0) 8.2 % (0.0-8.0) Eosinophils (%) (Auto) 4.4 % (0.0-4.0) Neutrophils # (Auto) 9.7 TH/MM3 (1.8-7.7) 9.3 TH/MM3 (1.8-7.7) Monocytes # (Auto) 1.4 TH/MM3 (0-0.9) 1.0 TH/MM3 (0-0.9) Eosinophils # (Auto) 0.6 TH/MM3 (0-0.4) 0.5 TH/MM3 (0-0.4) Urine Occult Blood MOD (NEG) Urine Leukocyte Esterase SMALL (NEG) Urine RBC 6 /hpf (0-3) Albumin 3.1 GM/DL (3.4-5.0) 3.1 GM/DL (3.4-5.0) Sodium Level 134 MEQ/L (136-145) Creatinine 0.49 MG/DL (0.50-1.00) Imaging Last Impressions Hip X-Ray 11/21/17 0000 Signed Impressions: Service Date/Time: Tuesday, November 21, 2017 12:33 - CONCLUSION: Status post ORIF of a subcapital femoral neck fracture on the left. Freddie Ray MD Chest X-Ray 11/20/17 1725 Signed Impressions: Service Date/Time: Monday, November 20, 2017 17:39 - CONCLUSION: 1. Suspected skin fold along the lateral right hemithorax. Consider formal PA and lateral views of the chest to exclude pneumothorax. Cameron Coronado MD Lower Extremity CT 11/20/17 0000 Signed Impressions: Service Date/Time: Monday, November 20, 2017 16:40 - CONCLUSION: Impacted subcapital fracture with valgus angulation. Walt Martin MD Head CT 11/20/17 0000 Signed Impressions: Service Date/Time: Monday, November 20, 2017 19:00 - CONCLUSION: 1. Suboptimal exam secondary to motion and streak artifact. 2. Atrophy and chronic small vessel ischemic change. David Gambino MD PE at Discharge GENERAL: Elderly female, agitated, grunting, trying to get out of bed, unable to redirect HEENT: [place]. No scleral icterus or conjunctival pallor. No lid lag or facial droop. CARDIOVASCULAR: Regular rate and rhythm. No obvious murmurs to auscultation. No chest tenderness to palpation. RESPIRATORY: No obvious rhonchi or wheezing. Clear to auscultation. Breath sounds equal bilaterally. GASTROINTESTINAL: Abdomen soft, non-tender, nondistended. BS normal. MUSCULOSKELETAL: Extremities without clubbing, cyanosis, or edema. No obvious deformities. Decreased ROM of LLE due to injury. Pulses intact. NEUROLOGICAL: Awake, alert. Mute. No focal neurologic deficits. Moving both upper and lower extremities spontaneously. Pt Condition on Discharge: Stable Discharge Disposition: Discharge to SNF Discharge Time: > 30 minutes Discharge Instructions DIET: Follow Instructions for: As Tolerated, No Restrictions Activities you can perform: See Additionl Instruction Other Activity Instructions: 50% WB LLE As per PT recommendations. Follow up Referrals: Orthopedics - 2 Weeks with Carlos Suarez MD New Medications: Aspirin (Aspirin Low Dose) 81 Mg Chew 81 MG CHEW DAILY for Prevent Blood Clot for 30 Days, #30 TAB 0 Refills Hydrocodone-Acetaminophen ([place]) 5 Mg-325 Mg Tab 1 TAB PO Q6H PRN for PAIN, #60 TAB 0 Refills Amlodipine (Norvasc) 5 Mg Tab 10 MG PO DAILY for Blood Pressure Management, #31 TAB Lisinopril (Lisinopril) 20 Mg Tab 20 MG PO DAILY for Blood Pressure Management, #31 TAB Continued Medications: Acetaminophen (Mapap) 325 Mg Tab 650 MG PO Q4-6H PRN for PAIN GREATER THAN 5, TAB 0 Refills Latanoprost Opth Drops (Latanoprost Opth Drops) 0.005% Drops 1 DROP EACH EYE HS for Glaucoma, #2.5 ML 0 Refills Refrigerate until opened. Multiple Vitamins W/ Minerals (Centrum) 1 Chew 1 TAB DAILY for Nutritional Supplement, TAB 0 Refills Ranitidine (Zantac) 150 Mg Tab 150 MG PO BID for Reduce Stomach Acid, #60 TAB 0 Refills Timolol Opth Drops (Timoptic Opth Drops) 0.5 % Soln 1 DROP EACH EYE BID for Glaucoma, #1 BOTTLE 0 Refills Discontinued Medications: Amlodipine (Norvasc) 5 Mg Tab 5 MG PO DAILY for Blood Pressure Management, #30 TAB 0 Refills Tramadol (Tramadol) 50 Mg Tab 50 MG PO BID PRN for PAIN, TAB 0 Refills Dennis Watt MD Nov 22, 2017 11:00
[2017-11-22] MEDS: amLODIPine BESYLATE 5 MG TAB PO SCH (11:22)
[2017-11-22] MEDS: LISINOPRIL 20 MG TAB PO SCH (11:22)
[2017-11-22] MEDS: FAMOTIDINE 20 MG TAB PO SCH ×2 (11:22→20:09)
[2017-11-22] MEDS: MULTIVITAMINS/MINERALS THERAPEUTIC TAB PO SCH (11:23)
[2017-11-22] MEDS: DOCUSATE SODIUM 50 MG/SENNA 8.6 MG TAB PO SCH ×2 (11:23→20:09)
[2017-11-22] MEDS: SODIUM CHLORIDE 0.9% FLUSH 10 ML FLUSH IV FLUSH SCH ×2 (11:27→20:09)
[2017-11-22] MEDS ORDERED: ENOXAPARIN SODIUM 30 MG/0.3 ML SYRINGE SQ SCH (12:00)
--- NOTE | 2017-11-22 12:41 | EKG ---
Date Performed: 11/20/2017 Time Performed: 18:48:26 PTAGE: 82 years EKG: Sinus rhythm POSSIBLE LEFT ATRIAL ENLARGEMENT LEFT BUNDLE BRANCH BLOCK ABNORMAL ECG NO PREVIOUS TRACING DOCTOR: Ceasar Tubbs Interpretating Date/Time 11/22/2017 12:40:30
[2017-11-22 12:57] LABS: HEMATOCRIT 36.6 % (35.0-46.0); HEMOGLOBIN 12.1 GM/DL (11.6-15.3); MEAN CELL VOLUME 88.5 FL (80.0-100.0); MEAN CORPUSCULAR HEMOGLOBIN 29.2 PG (27.0-34.0); MEAN PLATELET VOLUME 7.7 FL (7.0-11.0); PLATELET COUNT 238 TH/MM3 (150-450); RED BLOOD COUNT 4.13 MIL/MM3 (4.00-5.30); RED CELL DISTRIBUTION WIDTH 13.5 % (11.6-17.2); WHITE BLOOD COUNT 15.9 TH/MM3 (4.0-11.0)
[2017-11-22] MEDS: LATANOPROST 0.005% OPHT SOLN 2.5 ML BTL EACH EYE SCH (20:09)
[2017-11-22] MEDS: QUEtiapine FUMARATE 25 MG TAB PO SCH (20:09)
[2017-11-23 00:10] VITALS: BP 147/69; PULSE 109; RESP 19; TEMP 97.2; O2SAT 100
[2017-11-23] MEDS: DEXT 5%-NACL 0.45% 1000 ML INJ 1,000 ML IV SCH (01:37)
[2017-11-23 04:45] VITALS: BP 156/76; PULSE 117; RESP 20; TEMP 98.3; O2SAT 96
[2017-11-23 07:21] LABS: HEMATOCRIT 34.8 % (35.0-46.0); HEMOGLOBIN 11.4 GM/DL (11.6-15.3); MEAN CELL VOLUME 87.9 FL (80.0-100.0); MEAN CORPUSCULAR HEMOGLOBIN 28.9 PG (27.0-34.0); MEAN CORPUSCULAR HGB CONC 32.9 % (32.0-36.0); MEAN PLATELET VOLUME 7.5 FL (7.0-11.0); PLATELET COUNT 239 TH/MM3 (150-450); RED BLOOD COUNT 3.96 MIL/MM3 (4.00-5.30); WHITE BLOOD COUNT 15.2 TH/MM3 (4.0-11.0)
[2017-11-23 08:00] VITALS: BP 153/70; PULSE 104; RESP 16; TEMP 98; O2SAT 99
[2017-11-23] MEDS: amLODIPine BESYLATE 5 MG TAB PO SCH (10:22)
[2017-11-23] MEDS: QUEtiapine FUMARATE 25 MG TAB PO SCH (10:22)
[2017-11-23] MEDS: FAMOTIDINE 20 MG TAB PO SCH (10:22)
[2017-11-23] MEDS: MULTIVITAMINS/MINERALS THERAPEUTIC TAB PO SCH (10:22)
[2017-11-23] MEDS: LISINOPRIL 20 MG TAB PO SCH (10:22)
[2017-11-23] MEDS: DOCUSATE SODIUM 50 MG/SENNA 8.6 MG TAB PO SCH (10:23)
== END 2017-11-23 11:58 | DRG 481 ==
LOC: NEPE 15:22 → NEDA 19:08 → N06A 20:39
PROVIDERS: ADMIT Hospitalist; ATTEND Hospitalist
PROC: 0QS734Z Reposition Left Upper Femur with Internal Fixation Device, Percutaneous Approach (ICD-10-PCS; principal; 2017-11-21 11:32)
DX: S72.012A Unspecified intracapsular fracture of left femur, initial encounter for closed fracture (principal); R47.01 Aphasia; F03.90 Unspecified dementia, unspecified severity, without behavioral disturbance, psychotic disturbance, mood disturbance, and anxiety; I10 Essential (primary) hypertension; R45.1 Restlessness and agitation; K21.9 Gastro-esophageal reflux disease without esophagitis; D72.829 Elevated white blood cell count, unspecified; H40.9 Unspecified glaucoma; M19.90 Unspecified osteoarthritis, unspecified site; W19.XXXA Unspecified fall, initial encounter
CPT/HCPCS: 70450; 71010; 71020; 73502; 73700; 76000; 80053; 81001; 83735; 85025; 85027; 85610; 85730; 93005; C1713; C1769; J0690; J1100; J1580; J1650; J2060; J2175; J2270; J2405; J2550; J2710; J3010; J7030; J7120